=== PATIENT | female | born 1975 | race Caucasian/White ===

== ENCOUNTER 2018-07-05 13:05 | Emergency (ER) | payer BC ==
[~2018-07-05] VITALS: Ht 165.1 cm; Wt 72.6 kg
[~2018-07-05 13:05] MED LIST: BACTRIM DS 8001 TA1 PO; DUONEB 3 MG/3 ML3 M1 INH; HYDROCODONE BIT1 T11 PO; MEDROL DOSEPAK4 MG PO; PREDNISONE20 M1 PO; PROVENTIL0.09 MG/A1 INH; VIBRAMYCIN100 MG PO; ZOFRAN ODT4 MG SL
[2018-07-05] MEDS ORDERED: NAPROSYN500 MG PO (13:27)
== END 2018-07-05 14:54 | disposition home or self-care (01) ==
LOC: ED 13:05
DX: S93.401A Sprain of unspecified ligament of right ankle, initial encounter (principal); J44.9 Chronic obstructive pulmonary disease, unspecified; R03.0 Elevated blood-pressure reading, without diagnosis of hypertension; Z88.0 Allergy status to penicillin; Z79.2 Long term (current) use of antibiotics; Z79.899 Other long term (current) drug therapy; X50.1XXA Overexertion from prolonged static or awkward postures, initial encounter; Y93.89 Activity, other specified; Y92.89 Other specified places as the place of occurrence of the external cause; Y99.8 Other external cause status

== ENCOUNTER → 2020-09-06 | Outpatient (CLI) | payer SELFPAY ==
[~2020-09-06] MED LIST changes: +NAPROSYN500 MG PO
== END | disposition home or self-care (01) ==
LOC: COVID19 12:34
PROVIDERS: ATTEND Family Medicine
DX: Z20.822 Contact with and (suspected) exposure to COVID-19 (principal)

== ENCOUNTER → 2020-09-09 | Outpatient (CLI) | payer BC | END | disposition home or self-care (01) | LOC: RAD 10:13 | PROVIDERS: ATTEND Family Medicine | DX: J20.9 Acute bronchitis, unspecified (principal) ==

== ENCOUNTER 2024-05-06 20:12 | Emergency (ER) | payer SELFPAY ==
[~2024-05-06] VITALS: Ht 162.5 cm; Wt 72.6 kg
[2024-05-06] MEDS ORDERED: CLARITIN-D 121 EACH PO (20:17)
[2024-05-06] MEDS ORDERED: TOPAMAX50 MG PO (20:17)
[2024-05-06] MEDS ORDERED: SINGULAIR10 M1 PO (20:17)
[2024-05-06] MEDS ORDERED: Ketorolac Tromethamine 15 MG/ML VIAL IV ONE (20:25)
[2024-05-06] MEDS ORDERED: Ondansetron Hydrochloride 4 MG/2 ML VIAL IV ONE (20:25)
[2024-05-06] MEDS ORDERED: diphenhydrAMINE hydrochloride 50 MG/ML VIAL IV ONE (20:25)
[2024-05-06] MEDS ORDERED: SODIUM CHLORIDE 0.9% 1,000 ML IV ONE (20:25)
[2024-05-06 20:43] LABS: BASO # 0.1 10*3/uL (0.0-0.1); BASO % 0.8 % (0.0-1.0); EOS # 0.3 10*3/uL (0.0-0.4); EOS % 3.8 % (1.0-4.0); LYMPH # 2.7 10*3/uL (1.3-4.4); LYMPH % 36.8 % (27.0-41.0); MEAN CELL VOLUME 80.8 fl (81.0-99.0); MEAN CORPUSCULAR HGB 25.4 pg (27.0-31.0); MEAN CORPUSCULAR HGB CONC 31.4 g/dl (33.0-37.0); MEAN PLATELET VOLUME 9.8 fl (9.6-12.3); MONO # 0.7 10*3/uL (0.1-1.0); MONO % 9.4 % (3.0-9.0); NEUT # 3.6 10*3/uL (2.3-7.9); NEUT % 48.7 % (47.0-73.0); PLATELET COUNT AUTOMATED 328 10*3/uL (130-400); RED BLOOD COUNT 4.33 10*6/uL (4.10-5.10); RED CELL DISTRI WIDTH 15.4 % (0-14.5); WHITE BLOOD COUNT 7.4 10*3/uL (4.8-10.8)
[2024-05-06 21:11] LABS: BUN 10 mg/dl (9-23); CHLORIDE 112 mmol/L (98-107); POTASSIUM 3.6 mmol/L (3.4-5.1)
[2024-05-06] MEDS ORDERED: NAPROSYN500 MG PO (22:03)
[2024-05-06] MEDS ORDERED: Ondansetron4 MG PO (22:03)
[2024-05-06] MEDS ORDERED: Acetaminophen/Oxycodone Hydr 7.5 MG/325 MG TABLET PO ONE (22:05)
== END 2024-05-06 23:24 | disposition home or self-care (01) ==
LOC: ED 20:12
PROVIDERS: Nurse Practitioner Family
DX: G43.909 Migraine, unspecified, not intractable, without status migrainosus (principal); H53.8 Other visual disturbances; F32.A Depression, unspecified; R10.2 Pelvic and perineal pain; Z88.8 Allergy status to other drugs, medicaments and biological substances; Z88.0 Allergy status to penicillin; Z91.048 Other nonmedicinal substance allergy status; Z98.890 Other specified postprocedural states

== ENCOUNTER 2024-11-02 09:53 | Emergency (ER) | payer SELFPAY ==
[~2024-11-02] VITALS: Ht 162.5 cm; Wt 72.6 kg
[~2024-11-02 09:53] MED LIST changes: +CLARITIN-D 121 EACH PO; +Ondansetron4 MG PO; +SINGULAIR10 M1 PO; +TOPAMAX50 MG PO
[2024-11-02] MEDS ORDERED: LEVOFLOXACIN 750 MG TAB PO ONE (10:15)
[2024-11-02] MEDS ORDERED: CIPROFLOXACIN HC5 ML OPH (10:20)
[2024-11-02] MEDS ORDERED: LEVOFLOXACIN750 M2 PO (10:20)
== END 2024-11-02 10:38 | disposition home or self-care (01) ==
LOC: ED 09:53
DX: L03.213 Periorbital cellulitis (principal); H10.9 Unspecified conjunctivitis; R05.9 Cough, unspecified; J44.9 Chronic obstructive pulmonary disease, unspecified; F17.290 Nicotine dependence, other tobacco product, uncomplicated; Z88.0 Allergy status to penicillin; Z79.899 Other long term (current) drug therapy

== ENCOUNTER → 2025-02-13 | Outpatient (CLI) | payer OTHER ==
[~2025-02-13] MED LIST changes: +CIPROFLOXACIN HC5 ML OPH; +LEVOFLOXACIN750 M2 PO
== END | disposition home or self-care (01) ==
LOC: LAB 02:43 → US 10:30 → LAB 10:30
PROVIDERS: ATTEND Internal Medicine
DX: D25.0 Submucous leiomyoma of uterus (principal); N92.1 Excessive and frequent menstruation with irregular cycle

== ENCOUNTER 2025-04-07 19:43 | Emergency (ER) | payer OTHER ==
[~2025-04-07] VITALS: Ht 162.5 cm; Wt 77.1 kg
[2025-04-07] MEDS ORDERED: PAXIL20 M1 PO (19:51)
[2025-04-07] MEDS ORDERED: Tdap Vaccine 0.5 ML SYR (Adult Vaccine) IM ONE (20:05)
[2025-04-07] MEDS ORDERED: Bacitracin Zinc 14 GM TUBE T ONE (21:15)
[2025-04-07] MEDS ORDERED: SEPTDS PO (21:15)
[2025-04-07] MEDS ORDERED: METRONIDAZOLE500 M1 PO (21:16)
== END 2025-04-07 21:31 | disposition home or self-care (01) ==
LOC: ED 19:43
DX: S51.811A Laceration without foreign body of right forearm, initial encounter (principal); G43.909 Migraine, unspecified, not intractable, without status migrainosus; Z88.0 Allergy status to penicillin; Z79.899 Other long term (current) drug therapy; W54.0XXA Bitten by dog, initial encounter; Y93.89 Activity, other specified; Y92.89 Other specified places as the place of occurrence of the external cause; Y99.8 Other external cause status

== ENCOUNTER → 2025-04-20 | Day surgery (SDC) | payer OTHER ==
[~2025-04-20] VITALS: Ht 162.5 cm; Wt 78.0 kg
[~2025-04-20] MED LIST changes: +ACETAMINOPHEN 100 ML IV ONE; +Dexamethasone Sodium Phospha 4 MG/ML VIAL IV ONE; +EPINEPHrine/Lidocaine Hydroc 20 ML VIAL ONE; +FERRIC SUBSULFATE 8 ML VIAL ONE; +IBU800 M2 PO; +IRON325 M1 PO; +Lactated Ringer's Solution 1,000 ML IV ONE; +Lidocaine Hydrochloride 5 ML VIAL IV ONE; +METRONIDAZOLE500 M1 PO; +Midazolam Hydrochloride 2 MG/2 ML VIAL IV ONE; +Ondansetron Hydrochloride 4 MG/2 ML VIAL IV ONE; +PAXIL20 M1 PO; +PROPOFOL 200 MG/20 ML VIAL IV ONE; +SEPTDS PO; +SEVOFLURANE 250 ML BOT INH ONE
[2025-04-20 08:10] VITALS: BP 126/76
[2025-04-20 09:32] VITALS: BP 129/69
[2025-04-20 09:47] VITALS: BP 120/79
[2025-04-20 10:02] VITALS: BP 122/81
== END | disposition home or self-care (01) ==
LOC: SDC 04-17 13:15
PROVIDERS: ATTEND Obstetrics & Gynecology
DX: N93.8 Other specified abnormal uterine and vaginal bleeding (principal); D50.9 Iron deficiency anemia, unspecified; N85.8 Other specified noninflammatory disorders of uterus; N72 Inflammatory disease of cervix uteri; J44.9 Chronic obstructive pulmonary disease, unspecified; G43.909 Migraine, unspecified, not intractable, without status migrainosus; F41.9 Anxiety disorder, unspecified; F17.200 Nicotine dependence, unspecified, uncomplicated; F12.90 Cannabis use, unspecified, uncomplicated; Z88.8 Allergy status to other drugs, medicaments and biological substances; Z98.51 Tubal ligation status; Z98.890 Other specified postprocedural states; Z79.899 Other long term (current) drug therapy; Z88.0 Allergy status to penicillin

== ENCOUNTER 2025-06-15 02:14 | Inpatient (IN) | payer OTHER ==
[2025-06-12 10:00] LABS: BASO # 0.1 10*3/uL (0.0-0.1); BASO % 0.8 % (0.0-1.0); EOS # 0.2 10*3/uL (0.0-0.4); EOS % 1.7 % (1.0-4.0); MEAN CELL VOLUME 84.0 fl (81.0-99.0); MEAN CORPUSCULAR HGB 25.9 pg (27.0-31.0); MEAN PLATELET VOLUME 9.5 fl (9.6-12.3); MONO # 1.1 10*3/uL (0.1-1.0); MONO % 10.9 % (3.0-9.0); NEUT # 6.0 10*3/uL (2.3-7.9); NEUT % 62.2 % (47.0-73.0); NUCLEATED RED BLOOD CELL 0.0 % (0.0-0.0); NUCLEATED RED BLOOD CELL 0.0 10*3/uL (0.0-0.0); PLATELET COUNT AUTOMATED 270 10*3/uL (130-400); RED CELL DISTRI WIDTH 17.7 % (0-14.5)
[2025-06-12 10:49] LABS: BUN 13 mg/dl (9-23)
[~2025-06-15] VITALS: Ht 162.5 cm; Wt 90.9 kg
[2025-06-15] VITALS (9 sets, daily range): BP systolic 96–117; BP diastolic 55–73
[~2025-06-15 02:14] MED LIST changes: -ACETAMINOPHEN 100 ML IV ONE; -Dexamethasone Sodium Phospha 4 MG/ML VIAL IV ONE; -EPINEPHrine/Lidocaine Hydroc 20 ML VIAL ONE; -FERRIC SUBSULFATE 8 ML VIAL ONE; -Lactated Ringer's Solution 1,000 ML IV ONE; -Lidocaine Hydrochloride 5 ML VIAL IV ONE; -Midazolam Hydrochloride 2 MG/2 ML VIAL IV ONE; -Ondansetron Hydrochloride 4 MG/2 ML VIAL IV ONE; -PROPOFOL 200 MG/20 ML VIAL IV ONE; -SEVOFLURANE 250 ML BOT INH ONE
[2025-06-15] MEDS ORDERED: HYDROmorphONE Hydrochloride 0.5 MG/0.5 ML SYRINGE IV PRN (08:25)
[2025-06-15] MEDS ORDERED: ACETAMINOPHEN 100 ML IV ONE (08:43)
[2025-06-15] MEDS ORDERED: Lactated Ringer's Solution 1,000 ML IV ONE ×2 (08:43→10:52)
[2025-06-15] MEDS ORDERED: SODIUM CHLORIDE 0.9% 0 ML IV ONE (10:52)
[2025-06-15] MEDS ORDERED: SODIUM CHLORIDE 0.9% 100 ML IV ONE (10:53)
[2025-06-15] MEDS ORDERED: ROCURONIUM BROMIDE 50 MG/5 ML SYRINGE IV ONE (13:14)
[2025-06-15] MEDS ORDERED: Midazolam Hydrochloride 2 MG/2 ML VIAL IV ONE (13:14)
[2025-06-15] MEDS ORDERED: Ketamine Hydrochloride 50 MG/5 ML SYRINGE IV ONE (13:14)
[2025-06-15] MEDS ORDERED: Ondansetron Hydrochloride 4 MG/2 ML VIAL IV ONE (13:14)
[2025-06-15] MEDS ORDERED: Dexamethasone Sodium Phospha 4 MG/ML VIAL IV ONE (13:14)
[2025-06-15] MEDS ORDERED: MAGNESIUM SULFATE 1 GM/2 ML VIAL IV ONE (13:14)
[2025-06-15] MEDS ORDERED: Lidocaine Hydrochloride 5 ML VIAL IV ONE (13:14)
[2025-06-15] MEDS ORDERED: SUGAMMADEX SODIUM 200 MG/2 ML VIAL IV ONE (13:14)
[2025-06-15] MEDS ORDERED: PROPOFOL 200 MG/20 ML VIAL IV ONE (13:14)
[2025-06-15] MEDS ORDERED: OMEPRAZOLE40 MG PO (13:23)
[2025-06-15] MEDS ORDERED: Ondansetron Hydrochloride 4 MG/2 ML VIAL IV PRN (15:15)
[2025-06-15] MEDS ORDERED: Acetaminophen/Hydrocodone 5 MG/325 MG TABLET PO PRN (15:15)
[2025-06-15] MEDS ORDERED: ACETAMINOPHEN 325 MG TAB PO PRN (15:15)
[2025-06-15] MEDS ORDERED: FERROUS SULFATE 325 MG TAB PO SCH (16:45)
[2025-06-15] MEDS ORDERED: TOPIRAMATE 25 MG TAB PO SCH (16:45)
[2025-06-15] MEDS ORDERED: Loratadine/Pseudoephedrine S 1 TAB TAB PO SCH (16:45)
[2025-06-15] MEDS ORDERED: HYDROmorphONE Hydrochloride 0.5 MG/0.5 ML SYRINGE IV ONE (22:30)
[2025-06-16] VITALS: BP 114/68
[2025-06-16] MEDS ORDERED: TEMAZEPAM 15 MG CAP PO ONE (01:10)
[2025-06-16 06:25] LABS: BASO # 0.0 10*3/uL (0.0-0.1); BASO % 0.3 % (0.0-1.0); EOS # 0.1 10*3/uL (0.0-0.4); EOS % 0.6 % (1.0-4.0); MEAN CELL VOLUME 84.9 fl (81.0-99.0); MEAN CORPUSCULAR HGB 25.8 pg (27.0-31.0); MEAN PLATELET VOLUME 9.9 fl (9.6-12.3); MONO # 1.1 10*3/uL (0.1-1.0); MONO % 9.0 % (3.0-9.0); NEUT # 8.8 10*3/uL (2.3-7.9); NEUT % 74.3 % (47.0-73.0); NUCLEATED RED BLOOD CELL 0.0 % (0.0-0.0); NUCLEATED RED BLOOD CELL 0.0 10*3/uL (0.0-0.0); PLATELET COUNT AUTOMATED 234 10*3/uL (130-400); RED CELL DISTRI WIDTH 17.9 % (0-14.5)
[2025-06-16 07:12] LABS: BUN 9 mg/dl (9-23); SGPT/ALT 16 U/L (5-49)
[2025-06-16 08:00] VITALS: BP 114/56
[2025-06-16] MEDS ORDERED: LORazepam 2 MG/ML VIAL IV PRN (10:10)
[2025-06-16] MEDS ORDERED: Acetaminophen/Oxycodone 5 MG/325 MG TABLET PO PRN (11:00)
[2025-06-16] MEDS ORDERED: OMEPRAZOLE 20 MG CAP PO SCH (11:00)
[2025-06-16 12:00] VITALS: BP 114/68
[2025-06-16 16:00] VITALS: BP 104/66
[2025-06-16] MEDS ORDERED: DOCUSATE SODIUM 100 MG CAP PO SCH (18:00)
[2025-06-16 20:00] VITALS: BP 125/78
[2025-06-17] VITALS: BP 131/77
[2025-06-17 08:00] VITALS: BP 116/71
[2025-06-17 08:30] LABS: BASO # 0.1 10*3/uL (0.0-0.1); BASO % 0.5 % (0.0-1.0); EOS # 0.4 10*3/uL (0.0-0.4); EOS % 4.1 % (1.0-4.0); MEAN CELL VOLUME 83.6 fl (81.0-99.0); MEAN CORPUSCULAR HGB 25.9 pg (27.0-31.0); MEAN PLATELET VOLUME 9.7 fl (9.6-12.3); MONO # 1.0 10*3/uL (0.1-1.0); MONO % 10.1 % (3.0-9.0); NEUT # 6.8 10*3/uL (2.3-7.9); NEUT % 70.1 % (47.0-73.0); NUCLEATED RED BLOOD CELL 0.0 % (0.0-0.0); NUCLEATED RED BLOOD CELL 0.0 10*3/uL (0.0-0.0); PLATELET COUNT AUTOMATED 237 10*3/uL (130-400); RED CELL DISTRI WIDTH 17.6 % (0-14.5)
[2025-06-17 12:00] VITALS: BP 125/80
[2025-06-17 12:30] LABS: BILIRUBIN Negative (Negative); BLOOD 1+ (Negative); CLARITY Clear (Clear); COLOR Yellow (Yellow); KETONE Negative (Negative); LEUKO ESTERASE 1+ (Negative); NITRITE Negative (Negative); SPECIFIC GRAVITY 1.010 (1.001-1.030); UROBILINOGEN 1.0 E.U./dl (0.0-1.0)
[2025-06-17 12:47] LABS: HYALINE CAST 0-2; MUCOUS 1+; PH 8.5 (4.5-8.0)
[2025-06-17 12:48] LABS: BACTERIA 2+; RBC 21-30 rbc/hpf (0-2); WBC 31-40 wbc/hpf (0-5)
== END 2025-06-17 15:45 | disposition home or self-care (01) | DRG 742 ==
LOC: SDC 02:14 → 4E 10:09
PROVIDERS: Obstetrics & Gynecology; Student in an Organized Health Care Education/Training Program; ADMIT Internal Medicine; ATTEND Internal Medicine
PROC: 0UT90ZZ Resection of Uterus, Open Approach (ICD-10-PCS; principal; 2025-06-15)
PROC: 0UB70ZZ Excision of Bilateral Fallopian Tubes, Open Approach (ICD-10-PCS; 2025-06-15)
PROC: 0UB20ZZ Excision of Bilateral Ovaries, Open Approach (ICD-10-PCS; 2025-06-15)
DX: D25.9 Leiomyoma of uterus, unspecified (principal); E44.1 Mild protein-calorie malnutrition; G89.18 Other acute postprocedural pain; D50.9 Iron deficiency anemia, unspecified; F41.9 Anxiety disorder, unspecified; N92.4 Excessive bleeding in the premenopausal period; K21.00 Gastro-esophageal reflux disease with esophagitis, without bleeding; D50.0 Iron deficiency anemia secondary to blood loss (chronic); F17.210 Nicotine dependence, cigarettes, uncomplicated; J44.9 Chronic obstructive pulmonary disease, unspecified; F32.A Depression, unspecified; D72.829 Elevated white blood cell count, unspecified; Z90.710 Acquired absence of both cervix and uterus; Z90.79 Acquired absence of other genital organ(s); Z90.722 Acquired absence of ovaries, bilateral; Z82.49 Family history of ischemic heart disease and other diseases of the circulatory system; Z88.0 Allergy status to penicillin; Z79.899 Other long term (current) drug therapy